=== PATIENT | female | born 1985 | race Caucasian/White ===

== ENCOUNTER → 2019-02-15 | Outpatient (REF) | payer BC | LOC: M LAB LCGH 16:26 | PROVIDERS: ATTEND Nurse Practitioner Adult Health | DX: Z30.433 Encounter for removal and reinsertion of intrauterine contraceptive device (principal) ==

== ENCOUNTER → 2019-08-17 | Outpatient (REF) | payer BC | LOC: M LAB REF 11:16 | PROVIDERS: ATTEND Nurse Practitioner Adult Health | DX: Z12.4 Encounter for screening for malignant neoplasm of cervix (principal); R87.610 Atypical squamous cells of undetermined significance on cytologic smear of cervix (ASC-US) | CPT/HCPCS: 87624; G0123 ==